=== PATIENT | male | born 1975 | race Caucasian/White ===

== ENCOUNTER → 2020-08-19 07:17 | Outpatient (CLI) | payer OTHER, SELFPAY ==
--- NOTE | 2020-08-19 | DI.RAD.S_ITS ---
PROCEDURE: FL SHOULDER INJECTION MR/CT LT INDICATIONS: ROTATOR CUFF SYNDROME COMPARISON: None. TECHNIQUE: The indications, alternatives, benefits, risks, and complications of the procedure were explained to the patient. Written informed consent was obtained and placed in the chart. The shoulder was examined fluoroscopically and a site for needle placement chosen for entry into the glenohumeral joint from an anterior approach. The skin was prepped and draped in a sterile fashion, and 1% lidocaine infiltrated from skin down to joint capsule. A spinal needle was inserted into the glenohumeral joint, and a small amount of iodinated contrast media injected to confirm intra-articular placement of the needle tip. This was followed by approximately 12 mL dilute solution of a gadolinium containing MR contrast agent. The needle was removed and a dressing was applied. The patient was given postprocedural instructions and sent to the MR suite for MR imaging. FINDINGS: A single fluoroscopic spot image demonstrates intra-articular location of injected iodinated contrast. IMPRESSION: Successful fluoroscopically guided administration of dilute Gadolinium solution into the shoulder joint for MR arthrogram. Dictated by: Roldan Bonilla M.D. on 08/19/2020 at 10:45 Approved by: Roldan Bonilla M.D. on 08/19/2020 at 10:45
--- NOTE | 2020-08-19 | DI.MRI.S_ITS ---
PROCEDURE: MR SHOULDER LT W CON INDICATIONS: ROTATOR CUFF SYNDROME TECHNIQUE: After the administration of 12 mL of dilute intra-articular Gadolinium contrast, oblique coronal T1 and T2 spin echo with fat saturation, oblique sagittal T1 spin echo with and without fat saturation, oblique sagittal T2 fast spin echo with fat saturation, axial T1 spin echo with fat saturation through the shoulder. COMPARISON: None. FINDINGS: Image quality: Mildly motion degraded. Rotator cuff: Supraspinatus tendinopathy with partial thickness articular sided tear, approximately 50% of tendon thickness. There is also low-grade bursal surface fraying. No definite full-thickness tear identified. Infraspinatus tendon grossly intact with mild tendinopathy. Teres minor is intact. Mild subscapularis tendinopathy. No atrophy of the rotator cuff muscles although there is mild fatty infiltration of the supraspinatus and infraspinatus. Bones and bursae: No bone marrow contusions or fractures. Mild acromioclavicular joint degeneration. Mild glenohumeral joint degeneration. Acromion demonstrates conventional anatomy, without an os acromiale. Capsule and soft tissues: Labrum: Mild superior labral fraying, which could be age appropriate. There is a posterior-superior labral tear which is probably chronic. There is minimal adjacent glenoid rim sclerosis and spurring. No definite posterior subluxed appearance of the humeral head relative to the glenoid. Long head of the biceps tendon intact. The rotator interval appears normal, without fibrosis. Coracohumeral ligament intact. IMPRESSION: Chronic appearing posterosuperior labral tear. Minimal adjacent degenerative changes in the glenoid. Supraspinatus tendinopathy with partial thickness articular sided tear and low-grade bursal surface fraying as detailed above. Supraspinatus , subscapularis and infraspinatus tendinopathy Dictated by: Roldan Bonilla M.D. on 08/19/2020 at 9:54 Approved by: Roldan Bonilla M.D. on 08/19/2020 at 10:02
== END ==
PROVIDERS: PCP Student in an Organized Health Care Education/Training Program; Referring Provider Student in an Organized Health Care Education/Training Program; Visit Provider Student in an Organized Health Care Education/Training Program
DX: M75.102 Unspecified rotator cuff tear or rupture of left shoulder, not specified as traumatic (principal); M19.012 Primary osteoarthritis, left shoulder; S43.432A Superior glenoid labrum lesion of left shoulder, initial encounter
CPT/HCPCS: 23350; 73222; 77002

== ENCOUNTER 2022-04-18 08:21 | Emergency (ER) | payer BC, SELFPAY ==
[2022-04-18 08:26] VITALS: PULSE 64; O2SAT 100
[2022-04-18 08:35] VITALS: BP 180/90; PULSE 69; RESP 18; TEMP 36.8; O2SAT 100; BMI 33.9
[2022-04-18 08:41] LABS: Add Manual Diff / Slide Review NO; Basophils Absolute Auto 0 /uL (0-100); Basophils Percent Auto 0.4 % (0-2); Eosinophils Absolute Auto 200 /uL (0-450); Eosinophils Percent Auto 3.3 % (2-4); Hematocrit 43.8 % (41-53); Hemoglobin 15.1 g/dL (13.5-17.5); Lymphocytes Absolute Auto 2300 /uL (1100-4500); Lymphocytes Percent Auto 31.1 % (25-40); Mean Corpuscular HGB Conc 34.4 % (30-36); Mean Corpuscular Hemoglobin 27.9 PG (26-34); Mean Corpuscular Volume 81.1 fL (80-100); Monocytes Absolute Auto 600 /uL (0-900); Monocytes Percent Auto 8.5 % (3-14); Neutrophils Absolute Auto 4200 /uL (1500-7000); Neutrophils Percent Auto 56.7 % (50-75); Platelet Count 267 X10^3/uL (150-400); Red Cell Distribution Width 13.7 % (11.6-14.8); White Blood Cell Count 7.4 X10^3/uL (4.5-11.0)
[2022-04-18] MEDS: SODIUM CHLORIDE 0.9% 1,000 ML 1000 ML IV (08:44)
[2022-04-18] MEDS: KETOROLAC 30 MG/ML VIAL 15 MG IV (08:44)
--- NOTE | 2022-04-18 08:45 | ED_ITS ---
HPI - Abdominal Pain General Chief Complaint: Abdominal Pain Stated Complaint: Right flank pain Time Seen by Provider: 04/18/22 08:27 History of Present Illness HPI narrative: 46-year-old male nonsmoker with history of diabetes presents with his in the chief complaint of severe right flank pain since this morning. He states that it is quite severe and is unable to give it a number, it seems to be worse when he moves and improves with rest. He states it is deep and aching and wraps around his right side into his groin. He denies any fever or chills. He is had no chest pain or shortness of breath. He denies abdominal pain, nausea, vomiting, diarrhea or constipation. He is had no dysuria, frequency or urgency. He states that he is had a few prior episodes that seemed to get better after a few days. He denies any history of kidney stones. He is had no rash and denies any heavy lifting or injury. Related Data Previous Rx's Medication Instructions Recorded hydrocodone 5 mg-acetaminophen 325 0 tab PO Q4HP PRN #30 tabs 05/11/17 mg tablet lorazepam 0.5 mg tablet 0.5 mg PO Q4HP PRN ##30 05/11/17 metoprolol succinate 50 mg 100 mg PO QDAY #30 tabs 05/11/17 tablet,extended release 24 hr nitroglycerin 0.4 mg sublingual 0.4 mg sublingual PRN PRN #20 tabs 05/11/17 tablet (Nitrostat) pantoprazole 40 mg tablet,delayed 40 mg PO QDAY #30 tabs 05/11/17 release amoxicillin 875 mg-potassium 875 mg PO BID 10 days #0 tabs 11/16/17 clavulanate 125 mg tablet (Augmentin) tramadol 50 mg tablet 1 - 2 mg PO Q4HP PRN #15 tabs 11/16/17 hydrocodone 5 mg-acetaminophen 325 1 tab PO Q4-6H PRN pain #20 tabs 04/18/22 mg tablet ketorolac 10 mg tablet 10 mg PO Q6H PRN pain #14 tabs 04/18/22 ondansetron 4 mg disintegrating 4 mg PO TID-QID PRN nausea and 04/18/22 tablet vomiting #10 tabs tamsulosin 0.4 mg capsule (Flomax) 0.4 mg PO DAILY #30 caps 04/18/22 Allergies Allergy/AdvReac Type Severity Reaction Status Date / Time No Known Drug Allergies Allergy Verified 04/18/22 08:56 Review of Systems Review of Systems Narrative: GENERAL: Denies chills, fatigue, malaise, fever, sweats. HEENT: Denies sinus pain, ear pain, sore throat, difficulty swallowing, dizziness. RESPIRATORY: Denies dyspnea, cough, wheezing, hemoptysis, sputum. CARDIOVASCULAR: Denies chest pain, palpitations, orthopnea, edema, GASTROINTESTINAL: Denies nausea, vomiting, abdominal pain, diarrhea, constipation, melena. : See HPI MUSCULOSKELETAL: See HPI SKIN: Denies rash, skin lesions, or other NEUROLOGIC: Denies weakness, headache, numbness, change in speech, confusion, seizures, incoordination. PSYCHIATRIC: No concerning psychosocial issues. 12 point review of systems is negative except for those stated above Patient History Social History Smoking Status: Never smoker Exam Narrative Exam Narrative: GENERAL: [46] year old patient appears stated age. Well-developed patient, in obvious distress, rubbing his right flank HEAD: Atraumatic. Normocephalic. EYES: Pupils equal round and reactive. Extraocular motions intact. No scleral icterus. No injection or drainage. ENT: Nose without bleeding, purulent drainage. Throat without erythema, tonsillar hypertrophy or exudate. Airway patent. NECK: Trachea midline. Non tender CARDIOVASCULAR: Regular rate and rhythm without murmurs, gallops, or rubs. RESPIRATORY: Clear to auscultation. Breath sounds equal bilaterally. No wheezes, rales, or rhonchi. GASTROINTESTINAL: Abdomen soft, non-tender, nondistended. EXTREMITIES: No edema or joint tenderness. BACK: Right CVA tenderness, no obvious swelling, erythema, crepitance or ecchymosis NEURO: AOx3. SKIN: No rash or erythema of visible areas Initial Vital Signs Initial Vital Signs: Vital Signs Temperature 98.2 F 04/18/22 08:35 Pulse Rate 69 04/18/22 08:35 Respiratory Rate 18 04/18/22 08:35 Blood Pressure 180/90 H 04/18/22 08:35 Pulse Oximetry 100 04/18/22 08:35 Oxygen Delivery Method 04/18/22 08:35 Course Orders Ordered: ED Orders 04/18/22 08:30 Complete Blood Count AUTO DIFF Stat Comprehensive Metabolic Panel Stat 04/18/22 08:53 Urine Microscopic Stat 04/18/22 08:55 CT kidney ureter bladder (KUB) Stat Discontinued Medications Hydromorphone HCl (Hydromorphone 1 Mg Inj) 1 mg IV NOW ONE Stop: 04/18/22 08:56 Last Admin: 04/18/22 09:00 Dose: 1 mg Documented By: SEB Sodium Chloride (Normal Saline 0.9%) 1,000 mls @ 1,000 mls/hr IV BOLUS ONE Stop: 04/18/22 09:33 Last Infusion: 04/18/22 09:51 Dose: 0 mls/hr Documented By: Admin: 04/18/22 08:44 Dose: 1,000 mls/hr Documented By: SEB Ketorolac Tromethamine (Ketorolac 30 Mg/Ml Vial) 15 mg IV NOW ONE Stop: 04/18/22 08:35 Last Admin: 04/18/22 08:44 Dose: 15 mg Documented By: SEB Tamsulosin HCl (Tamsulosin 0.4 Mg Capsule) 0.4 mg PO NOW ONE Stop: 04/18/22 09:38 Last Admin: 04/18/22 09:43 Dose: 0.4 mg Documented By: SEB Vital Signs Vital signs: Vital Signs - 8 hr 04/18/22 08:35 Temperature 98.2 F Pulse Rate 69 Respiratory Rate 18 Blood Pressure 180/90 H Pulse Oximetry 100 Oxygen Delivery Method Room Air MDM - Abdominal Pain Lab Data Result diagrams: 04/18/22 08:30 04/18/22 08:30 Labs: Lab Results 04/18/22 04/18/22 04/18/22 Range/Units 08:30 08:30 08:53 WBC 7.4 (4.5-11.0) X10^3/uL RBC 5.40 (4.5-5.9) X10^6/uL Hgb 15.1 (13.5-17.5) g/dL Hct 43.8 (41-53) % MCV 81.1 (80-100) fL MCH 27.9 (26-34) PG MCHC 34.4 (30-36) % RDW 13.7 (11.6-14.8) % Plt Count 267 (150-400) X10^3/uL Neut % (Auto) 56.7 (50-75) % Lymph % (Auto) 31.1 (25-40) % Bay % (Auto) 8.5 (3-14) % Eos % (Auto) 3.3 (2-4) % Baso % (Auto) 0.4 (0-2) % Neut # (Auto) 4200 (7960-5903) /uL Lymph # (Auto) 2300 (9152-4392) /uL Bay # (Auto) 600 (0-900) /uL Eos # (Auto) 200 (0-450) /uL Baso # (Auto) 0 (0-100) /uL Sodium 138 (137-145) mmol/L Potassium 4.1 (3.4-5.1) mmol/L Chloride 102 (98-107) mmol/L Carbon Dioxide 30 (22-32) mmol/L BUN 20 (9-20) mg/dL Creatinine 0.84 (0.66-1.25) mg/dL Estimated GFR > 60 (>60) mL/min BUN/Creatinine Ratio 23.8 H (6-22) Glucose 119 H (70-100) mg/dL Calcium 8.7 (8.4-10.2) mg/dL Total Bilirubin 0.6 (0.2-1.3) mg/dL AST 17 (17-59) IU/L ALT 18 (<50) IU/L Alkaline Phosphatase 103 (38-126) U/L Total Protein 7.6 (6.3-8.2) g/dL Albumin 4.1 (3.5-5.0) g/dL Globulin 3.5 (1.7-4.1) g/dL Albumin/Globulin Ratio 1.2 (1.0-2.8) Urine RBC 5-10/hpf H (0-5/HPF) Urine WBC 0-1/hpf (0-5/HPF) Urine Bacteria Occasional (0-1) (None) Ur Culture Indicated? Cult not indicated Point of care testing: Urine Dip Bedside Urine Glucose Negative Bedside Urine Bilirubin - Negative Bedside Urine Ketone - Negative Urine Specific [place] 1.020 Bedside Urine Occult Blood ++ Bedside Urine pH 6.0 Bedside Urine Protein - Negative Bedside Urine Urobilinogen - Negative Bedside Urine Nitrite - Negative Bedside Urine Leukocytes - Negative Esterase Imaging Data CT scan - abdomen/pelvis: Radiologist's Impression: ? Chart Viewer Diagnostics Subcategory All Activity ??:?? All Time ??:?? All Subcategories Filter Laboratory Imaging Microbiology Pathology Blood Bank Tests Cardiovascular Other Specialty DATE TYPE STATUS REF RANGE/AUTHOR Hx Today 08:55 Abdomen/Pelvis CT Signed Angi Martin 08/19/20 00:00 Shoulder MRI Signed Roldan Bonilla 08/19/20 00:00 Injection for MRI Arthrogram Signed Roldan Bonilla Matthew C ED 46, M?1975 MRN#? [id number] REG ER,?Main ED??R12?? 182.88cm 113.398kg BMI: 33.9kg/m? Abdominal Pain Acc#? [id number] Resus Status Not Ordered No Hx Avail Special Indicators No Data to Display Home Meds Not Confirmed Prescription Monitoring Program Total 30 MME/Day Incomplete MEDICATIONS (INSTRUCTIONS) LAST TAKEN Active ??amoxicillin-pot clavulanate [Augmentin] ??875 [id number] days#0 tabs *Product no longer available ??hydrocodone-acetaminophen ??0 [id number]#30 tabs 0 MME/Day hydrocodone-acetaminophen 1 tabPOQ4-6HPRNpain#20 tabs 30 MME/Day ketorolac 10 prUER4RGJGdgus#14 tabs ??lorazepam ??0.5 [id number]##30 ??metoprolol succinate ??100 mgPOQDAY#30 tabs ??nitroglycerin [Nitrostat] ??0.4 mgsublingualPRNPRN#20 tabs ondansetron 4 mgPOTID-QIDPRNnausea and vomiting#10 tabs ??pantoprazole ??40 mgPOQDAY#30 tabs tamsulosin [Flomax] 0.4 mgPODAILY#30 caps ??tramadol ??1 - 2 klNJG8ITBPI#15 tabs 0 MME/Day Allergies No Known Drug Allergies Problems ? ONSET Kidney stone on right side Cholelithiasis and cholecystitis without obstruction Chest pain Hypertension Leukocytosis Reflux esophagitis Anxiety Cellulitis of face Vital Signs Today 08:35 BP 180/90?H Pulse 69? Resp 18? Temp 98.2 F? O2 Sat 100? Delivery Room Air? Diagnostics Reports Momo Garg??46??M??1975 ? Allergy/Adv: No Known Drug Allergies (More??) Close Abdomen/Pelvis CT (Signed) Angi Martin - 04/18/22 Shoulder MRI (Signed) Roldan Bonilla - 08/19/20 Injection for MRI Arthrogram (Signed) Roldan Bonilla - 08/19/20 Launch?Image [address] [address] [address] Scan Report Signed Patient: Momo Garg MR#: [id number] : 1975 Acct:[id number] Age/Sex: 46 / M Date of Service: 04/18/22 Loc: ED Accession Number: [id number] ?? Procedure: CT kidney ureter bladder (KUB) Ordering Provider: Karan Hernandez D.O. PROCEDURE:? CT KIDNEY URETER BLADDER (KUB) ? INDICATIONS:? R flank pain ? TECHNIQUE:? Axial sections were acquired from the lung bases to the pubic symphysis.? Coronal and sagittal reformats were performed.? For radiation dose reduction, the following was used: ?automated exposure control, adjustment of mA and/or kV according to patient size.? ? COMPARISON:? [facility], CT, PE STUDY (CTA CHEST), 05/11/2017, 9:23. ? FINDINGS:? Image quality:? Excellent.? ? Lung bases:? 5 mm right middle lobe nodule series 3, image 2 as well as 2 mm adjacent nodule on series 3, image 2. These are unchanged compared to 05/11/2017. Heart:? Heart is enlarged. ? URINARY: Right Kidney:? There is mild hydronephrosis.? No renal stones.? Right Ureter:? Mild hydroureter.? There is a punctate calcification approximately 1 cm from the ureterovesicular junction.? ? Left Kidney: ? No stones or hydronephrosis. Left Ureter:? No hydroureter.? ? Bladder:? Normal wall thickness. No stones. ? ? ? ABDOMEN: Liver:? Unremarkable.? ? Gallbladder:? Removed.? ? Biliary ducts:? Unremarkable.? ? Pancreas:? Unremarkable.? ? Spleen:? Unremarkable.? ? Adrenal Glands:? Unremarkable.? ? ? Stomach and Bowel:? Stomach, small bowel loops, and colon are nonobstructive.? Prominent colonic diverticula are present without inflammatory change.? Appendix is normal.? Moderate scattered stool. Peritoneum:? No abnormal intraperitoneal fluid.? No free air.? ? Ventral Wall: ? No hernia.? Abdominal Nodes:? No enlarged retroperitoneal or mesenteric lymph nodes.? Vessels:? Aorta and inferior vena cava are normal in size.? ? PELVIS: Pelvic Organs:? Unremarkable.? ? Pelvic Nodes: Unremarkable. Miscellaneous: No inguinal hernias are seen. ? ? ? Bones:? Unremarkable. ? IMPRESSION:? ? Mild right hydronephrosis and hydroureter with punctate calcification approximately 1 cm proximal to the ureterovesicular junction. ? ? ? Dictated by: Angi Martin M.D. on 04/18/2022 at 9:19 ? ? MDM Narrative Medical decision making narrative: 46-year-old male with classic history and physical exam for kidney stone which is noted on CT with moderate hydro. There is no evidence of kidney injury, infection or sepsis. Pain is well controlled and he is tolerating orals. He has been given extensive return precautions, prescription sent to his pharmacy of choice and questions answered to his apparent satisfaction Discharge Plan Departure Patient Disposition: Home Clinical Impression: Kidney stone on right side Instructions: DI for Kidney Stones Activity Restrictions/Additional Instructions: *You have been diagnosed with [ right sided kidney stone with associated hydronephrosis] *What to do: *Please continue to take your regular medications as directed. [ x] New medication prescriptions sent to your pharmacy: [ ] [ ] New medication written as a paper prescription [ ] No new medications given *Please follow up with Urology (Dr. Catalan), call later today for an appointment. Let them know you were seen in the Emergency Department and that we ask that you be seen in follow up. We will electronically transmit a record of today's note *Return to Emergency Department if you should have any new, worsening or concerning symptoms, such as [fever greater than 101 F, shaking chills, worsening pain, persistent vomiting or other bothersome symptoms] Prescriptions: New hydrocodone-acetaminophen 5-325 mg tablet 1 tab PO Q4-6H PRN (Reason: pain) Qty: 20 0RF ketorolac 10 mg tablet 10 mg PO Q6H PRN (Reason: pain) Qty: 14 0RF tamsulosin [Flomax] 0.4 mg capsule 0.4 mg PO DAILY Qty: 30 0RF ondansetron 4 mg tablet,disintegrating 4 mg PO TID-QID PRN (Reason: nausea and vomiting) Qty: 10 0RF No Action metoprolol succinate 50 MG tablet extended release 24 hr 100 mg PO QDAY Qty: 30 3RF nitroglycerin [Nitrostat] 0.4 MG tablet, sublingual 0.4 mg Sublingual PRN PRNQty: 20 2RF lorazepam 0.5 MG tablet 0.5 mg PO Q4HP PRNQty: 30 0RF hydrocodone-acetaminophen 5 MG/325 MG tablet 0 tab PO Q4HP PRNQty: 30 0RF pantoprazole 40 MG tablet,delayed release (DR/EC) 40 mg PO QDAY Qty: 30 3RF tramadol 50 MG tablet 1 - 2 mg PO Q4HP PRNQty: 15 0RF amoxicillin-pot clavulanate [Augmentin] 875 MG/125 MG tablet 875 mg PO BID 10 Days Qty: 0 0RF Referrals: Fay Ly MD [Primary Care Provider] - Scotty Catalan MD [Physician] -
[2022-04-18 08:52] LABS: Alanine Aminotransferase 18 IU/L (<50); Albumin 4.1 g/dL (3.5-5.0); Albumin Globulin Ratio 1.2 (1.0-2.8); Alkaline Phosphatase 103 U/L (38-126); Aspartate Aminotransferase 17 IU/L (17-59); BUN Creatinine Ratio 23.8 (6-22); Bilirubin Total 0.6 mg/dL (0.2-1.3); Blood Urea Nitrogen 20 mg/dL (9-20); Calcium 8.7 mg/dL (8.4-10.2); Carbon Dioxide 30 mmol/L (22-32); Chloride 102 mmol/L (98-107); Estimated Glomerular Filt Rate > 60 mL/min (>60); Globulin 3.5 g/dL (1.7-4.1); Glucose 119 mg/dL (70-100); HEMOLYSIS < 15 (0-50); Potassium 4.1 mmol/L (3.4-5.1); Sodium 138 mmol/L (137-145); Total Protein 7.6 g/dL (6.3-8.2)
--- NOTE | 2022-04-18 08:55 | DI.CT.S_ITS ---
PROCEDURE: CT KIDNEY URETER BLADDER (KUB) INDICATIONS: R flank pain TECHNIQUE: Axial sections were acquired from the lung bases to the pubic symphysis. Coronal and sagittal reformats were performed. For radiation dose reduction, the following was used: automated exposure control, adjustment of mA and/or kV according to patient size. COMPARISON: [facility], CT, PE STUDY (CTA CHEST), 05/11/2017, 9:23. FINDINGS: Image quality: Excellent. Lung bases: 5 mm right middle lobe nodule series 3, image 2 as well as 2 mm adjacent nodule on series 3, image 2. These are unchanged compared to 05/11/2017. Heart: Heart is enlarged. URINARY: Right Kidney: There is mild hydronephrosis. No renal stones. Right Ureter: Mild hydroureter. There is a punctate calcification approximately 1 cm from the ureterovesicular junction. Left Kidney: No stones or hydronephrosis. Left Ureter: No hydroureter. Bladder: Normal wall thickness. No stones. ABDOMEN: Liver: Unremarkable. Gallbladder: Removed. Biliary ducts: Unremarkable. Pancreas: Unremarkable. Spleen: Unremarkable. Adrenal Glands: Unremarkable. Stomach and Bowel: Stomach, small bowel loops, and colon are nonobstructive. Prominent colonic diverticula are present without inflammatory change. Appendix is normal. Moderate scattered stool. Peritoneum: No abnormal intraperitoneal fluid. No free air. Ventral Wall: No hernia. Abdominal Nodes: No enlarged retroperitoneal or mesenteric lymph nodes. Vessels: Aorta and inferior vena cava are normal in size. PELVIS: Pelvic Organs: Unremarkable. Pelvic Nodes: Unremarkable. Miscellaneous: No inguinal hernias are seen. Bones: Unremarkable. IMPRESSION: Mild right hydronephrosis and hydroureter with punctate calcification approximately 1 cm proximal to the ureterovesicular junction. Dictated by: Angi Martin M.D. on 04/18/2022 at 9:19 Approved by: Angi Martin M.D. on 04/18/2022 at 9:26
[2022-04-18] MEDS: HYDROMORPHONE 1 MG INJ IV (09:00)
[2022-04-18 09:07] LABS: Bacteria Urine Occasional (0-1); Culture Indicated Urine Cult Not Indicated; RBC Urine 5-10/HPF (0-5/HPF); WBC Urine 0-1/HPF (0-5/HPF)
[2022-04-18] MEDS: TAMSULOSIN 0.4 MG CAPSULE PO (09:43)
[2022-04-18 10:50] VITALS: BP 140/83; PULSE 59; O2SAT 96
[2022-04-18 10:54] VITALS: BP 133/71; PULSE 60; RESP 16; O2SAT 96
== END 2022-04-18 10:55 | disposition home or self-care (01) ==
PROVIDERS: Emergency Provider Emergency Medicine; PCP Student in an Organized Health Care Education/Training Program
DX: N20.0 Calculus of kidney (principal)
CPT/HCPCS: 36415; 74176; 80053; 81003; 81015; 85025; 96361; 96374; 96375; 99284; J1170; J1885

== ENCOUNTER → 2022-04-25 09:01 | Outpatient (CLI) | payer BC, SELFPAY ==
--- NOTE | 2022-04-25 09:02 | DI.RAD.S_ITS ---
PROCEDURE: XR KUB INDICATIONS: Tiny right ureteral stone TECHNIQUE: One view of the abdomen acquired. COMPARISON: [facility], CT, CT KIDNEY URETER BLADDER (KUB), 04/18/2022, 9:01. FINDINGS: Surgical changes and devices: Status post cholecystectomy. Bowel: Increased stool in the large bowel consistent with constipation. Soft tissues: No suspicious abdominal calcifications. Visualized solid organ contours appear normal in size. Bones: No suspicious bony lesions. IMPRESSION: 1. No nephroureterolithiasis identified. 2. Constipation. Dictated by: Darwin Mckinley M.D. on 04/25/2022 at 10:06 Approved by: Darwin Mckinley M.D. on 04/25/2022 at 10:19
== END ==
PROVIDERS: PCP Student in an Organized Health Care Education/Training Program; Referring Provider Urology; Visit Provider Urology
DX: N20.1 Calculus of ureter (principal); K59.00 Constipation, unspecified
CPT/HCPCS: 74018

== ENCOUNTER → 2022-04-29 09:27 | Outpatient (CLI) | payer BC, SELFPAY ==
--- NOTE | 2022-04-29 09:28 | DI.CT.S_ITS ---
PROCEDURE: CT ABDOMEN PELVIS WO CON INDICATIONS: Kidney stone/hydronephrosis TECHNIQUE: Axial sections were acquired from the lung bases to the pubic symphysis. Coronal and sagittal reformats were performed. For radiation dose reduction, the following was used: automated exposure control, adjustment of mA and/or kV according to patient size. COMPARISON: None. FINDINGS: Image quality: Excellent. Lung bases: Unremarkable. Heart: No significant findings. There is a small pericardial effusion. URINARY: Right Kidney: No stones or hydronephrosis. Right Ureter: No hydroureter. Left Kidney: No stones or hydronephrosis. An apparent water density cyst can be seen involving the left mid kidney that measures 1.8 cm. Left Ureter: No hydroureter. Bladder: Normal wall thickness. No stones. ABDOMEN: Liver: Unremarkable. Gallbladder: Removed. Biliary ducts: Unremarkable. Pancreas: Unremarkable. Spleen: Unremarkable. Adrenal Glands: Unremarkable. Stomach and Bowel: Moderate wall thickening can be seen involving the proximal sigmoid colon, with surrounding inflammatory change. Diverticula formation can be seen within this region. The colon is otherwise unremarkable. No dilated loops of small bowel can be seen. A normal appendix is incidentally noted. Peritoneum: Peritoneal abscess is seen. No abnormal intraperitoneal fluid. No free air. Ventral Wall: No hernia. Abdominal Nodes: No enlarged retroperitoneal or mesenteric lymph nodes. Vessels: Aorta and inferior vena cava are normal in size. PELVIS: Pelvic Organs: Unremarkable. Pelvic Nodes: Unremarkable. Miscellaneous: No inguinal hernias are seen. Bones: Unremarkable. IMPRESSION: Negative for kidney stones or hydronephrosis. The previously seen right-sided hydronephrosis has resolved. Mild sigmoid diverticulitis, without findings of perforation or abscess. - When clinically appropriate (following adequate treatment of the patient's current clinical episode) a colonoscopy is recommended for further evaluation for a potential underlying mass (if not already recently done). Incidental note is made of: Small pericardial effusion Cholecystectomy Simple left renal cyst Normal appendix Note: Dr. Verdugo was not available to discuss this case at the time of this dictation. Findings and recommendations relayed to Dr. Verdugo via office staff, [place], at 9:47 a.m. [place] time on April 29, 2022. Dr. Verdugo will call back if there are any questions. Dictated by: Kenny Hunt M.D. on 04/29/2022 at 9:42 Approved by: Kenny Hunt M.D. on 04/29/2022 at 9:50
[2022-04-29 11:12] LABS: Calcium 8.7 mg/dL (8.4-10.2); Uric Acid 4.4 mg/dL (3.5-8.5)
[2022-04-30 05:36] LABS: Parathyroid Hormone Int 26 pg/mL (15-65)
== END ==
LOC: CT 09:28
PROVIDERS: PCP Student in an Organized Health Care Education/Training Program; Referring Provider Urology; Visit Provider Urology
DX: N20.0 Calculus of kidney (principal); N13.30 Unspecified hydronephrosis; K57.32 Diverticulitis of large intestine without perforation or abscess without bleeding; I31.3 Pericardial effusion (noninflammatory); N28.1 Cyst of kidney, acquired
CPT/HCPCS: 36415; 74176; 82310; 83970; 84550

== ENCOUNTER → 2022-05-19 09:51 | Outpatient (CLI) | payer BC, SELFPAY ==
--- NOTE | 2022-05-19 | DI.CT.S_ITS ---
PROCEDURE: CT ABDOMEN PELVIS W CON INDICATIONS: Diverticulitis of intestine, part unspecified, without perfo TECHNIQUE: After the administration of intravenous contrast, axial sections acquired from the lung bases to the pubic symphysis. Coronal and sagittal reformats were performed. For radiation dose reduction, the following was used: automated exposure control, adjustment of mA and/or kV according to patient size. COMPARISON: [facility], CT, CT ABDOMEN PELVIS WO [facility], 04/29/2022, 9:49. FINDINGS: Lower thorax: The lung bases are clear. Heart size normal. No hiatal hernia. Liver: Normal in size and attenuation. No contour deformity present. Biliary system: Cholecystectomy. No intra or extrahepatic bile duct dilation. Pancreas: Unremarkable without mass or inflammation evident. Spleen: Normal in size and density. Adrenals: Normal morphology and density. Reproductive system: Unremarkable as visualized. Urinary system: Normal renal size and attenuation. Left renal cyst again noted. No renal calculi, hydronephrosis, or solid mass present. Urinary bladder unremarkable. Gastrointestinal system: There is mild improved lung wall thickening and adjacent inflammation in the mid sigmoid. No evidence of obstruction. Moderate fecal debris throughout the colon. Multiple diverticula arise from the sigmoid colon. Appendix: Normal appendix identified. No evidence of appendicitis. Peritoneal spaces: No mesenteric or retroperitoneal adenopathy. No free air. No free fluid. Vasculature: The IVC, aorta and iliac vasculature are unremarkable. Abdominal wall: Abdominal wall intact without evidence of ventral or inguinal hernias. Musculoskeletal: Normal bone mineralization. No acute fractures. IMPRESSION: 1. Persistent but improved mid sigmoid wall thickening with adjacent edema may reflect residual mild diverticulitis. Either follow up to complete resolution or direct visualization advised to exclude underlying mass lesion. 2. Stable chronic findings as above Approved by: Burke Tierney M.D. on 05/19/2022 at 13:43
== END ==
PROVIDERS: PCP Family Medicine; Referring Provider Family Medicine; Visit Provider Family Medicine
DX: K57.92 Diverticulitis of intestine, part unspecified, without perforation or abscess without bleeding (principal)
CPT/HCPCS: 74177; Q9967

== ENCOUNTER → 2022-06-23 09:07 | Outpatient (CLI) | payer BC, SELFPAY ==
[2022-06-23 10:39] LABS: Add Manual Diff / Slide Review NO; Basophils Absolute Auto 0 /uL (0-100); Basophils Percent Auto 0.3 % (0-2); Eosinophils Absolute Auto 200 /uL (0-450); Eosinophils Percent Auto 2.8 % (2-4); Hematocrit 43.1 % (41-53); Hemoglobin 14.8 g/dL (13.5-17.5); Lymphocytes Absolute Auto 1800 /uL (1100-4500); Lymphocytes Percent Auto 27.8 % (25-40); Mean Corpuscular HGB Conc 34.4 % (30-36); Mean Corpuscular Volume 81.3 fL (80-100); Monocytes Absolute Auto 500 /uL (0-900); Monocytes Percent Auto 7.2 % (3-14); Neutrophils Absolute Auto 4000 /uL (1500-7000); Neutrophils Percent Auto 61.9 % (50-75); Platelet Count 242 X10^3/uL (150-400); Red Blood Cell Count 5.31 X10^6/uL (4.5-5.9); Red Cell Distribution Width 13.2 % (11.6-14.8); White Blood Cell Count 6.4 X10^3/uL (4.5-11.0)
[2022-06-23 11:19] LABS: Alanine Aminotransferase 27 IU/L (<50); Albumin 4.1 g/dL (3.5-5.0); Albumin Globulin Ratio 1.4 (1.0-2.8); Alkaline Phosphatase 105 U/L (38-126); Aspartate Aminotransferase 18 IU/L (17-59); Bilirubin Total 0.9 mg/dL (0.2-1.3); Blood Urea Nitrogen 18 mg/dL (9-20); Calcium 8.9 mg/dL (8.4-10.2); Carbon Dioxide 26 mmol/L (22-32); Chloride 97 mmol/L (98-107); Estimated Glomerular Filt Rate > 60 mL/min (>60); Glucose 260 mg/dL (70-100); HEMOLYSIS < 15 (0-50); Potassium 4.4 mmol/L (3.4-5.1); Sodium 136 mmol/L (137-145); Total Protein 7.1 g/dL (6.3-8.2)
== END ==
PROVIDERS: PCP Family Medicine; Referring Provider Surgery; Visit Provider Surgery
DX: K57.92 Diverticulitis of intestine, part unspecified, without perforation or abscess without bleeding (principal)
CPT/HCPCS: 36415; 80053; 85025

== ENCOUNTER → 2022-06-28 13:17 | Outpatient (CLI) | payer BC, SELFPAY ==
--- NOTE | 2022-06-28 13:18 | DI.CT.S_ITS ---
PROCEDURE: CT ABDOMEN PELVIS W CON INDICATIONS: Diverticulitis TECHNIQUE: After the administration of oral and IV contrast, axial sections were acquired from the lung bases to the pubic symphysis. Coronal and sagittal reformats were performed. For radiation dose reduction, the following was used: automated exposure control, adjustment of mA and/or kV according to patient size. COMPARISON: [facility], CT, CT ABDOMEN PELVIS WO CON, 04/29/2022, 9:49. [facility], CT, CT ABDOMEN PELVIS W CON, 05/19/2022, 11:18. FINDINGS: Image quality: Excellent. Lung bases: Left lower lobe pulmonary nodule measuring 0.5 cm (3/11), unchanged since 2017. Heart: No significant findings. ABDOMEN: Liver: No focal lesion. Gallbladder: Absent. Biliary ducts: Unremarkable. Pancreas: Unremarkable. Spleen: No splenomegaly. Small cyst or hemangioma, unchanged. Adrenal Glands: Unremarkable. Kidneys and Ureters: No hydronephrosis. Small parapelvic cyst in the left kidney. Stomach and Bowel: Stomach, small bowel loops, and colon are unremarkable. Normal appendix. Probable clip at the cecum. Sigmoid colon diverticulosis. No acute diverticulitis identified. There is an area of focal thickening with possible narrowing at the sigmoid colon, (2/70). There are small lymph nodes adjacent to this area in the left lower quadrant, (2/71). Peritoneum: No abnormal intraperitoneal fluid. No free air. Ventral Wall: No hernia. Abdominal Nodes: No retroperitoneal or mesenteric adenopathy by size criteria. Vessels: Aorta and inferior vena cava are normal in size. Moderate plaque. PELVIS: Pelvic Organs: Unremarkable. Bladder: Unremarkable. Pelvic Nodes: No enlarged lymph nodes. Miscellaneous: No inguinal hernias are seen. Bones: No suspicious lesion. IMPRESSION: 1. No acute diverticulitis identified. No free fluid. 2. Focal area of thickening at the sigmoid colon with possible narrowing. Small adjacent lymph nodes. These findings are unchanged in the short-term interval. Colon cancer could have this appearance. -Recommend colonoscopy if not recently performed. Dictated by: Ameya Wolfe M.D. on 06/28/2022 at 16:23 Approved by: Ameya Wolfe M.D. on 06/28/2022 at 16:36
== END ==
PROVIDERS: PCP Family Medicine; Referring Provider Surgery; Visit Provider Surgery
DX: K57.92 Diverticulitis of intestine, part unspecified, without perforation or abscess without bleeding (principal); K57.30 Diverticulosis of large intestine without perforation or abscess without bleeding
CPT/HCPCS: 74177; Q9967

== ENCOUNTER → 2022-07-06 09:16 | Outpatient (CLI) | payer BC, SELFPAY ==
[2022-07-06 12:05] LABS: COVID19 -Nasal RAPID Negative (Negative)
== END ==
PROVIDERS: PCP Family Medicine; Visit Provider Surgery
DX: Z20.822 Contact with and (suspected) exposure to COVID-19 (principal); Z01.812 Encounter for preprocedural laboratory examination
CPT/HCPCS: 87635; C9803

== ENCOUNTER 2022-07-07 14:00 | Day surgery (SDC) | payer BC, SELFPAY ==
[2022-07-07 15:02] VITALS: BP 148/96; PULSE 76; RESP 16; TEMP 36.2; O2SAT 96; BMI 32.5
[2022-07-07] MEDS: LACTATED RINGERS 1,000 ML 42 ML IV (15:16)
--- NOTE | 2022-07-07 15:20 | PM.PREOP ---
Pre-operative Note COVID-19 COVID-19 status: Negative Result date/Date tested (Pos, Neg/Pending): 07/06/22 Interval Note History & Physical reviewed/Exam performed by Physician: Yes Changes to H&P: Yes H&P completed within 30 days and has changed as indicated here:: Recent CT showed no evidence of diverticulitis but thickening in the sigmoid colon ASA Class (for procedural sedation): II
[2022-07-07 15:56] VITALS: BP 124/73; PULSE 71; RESP 13; TEMP 36.6; O2SAT 93
--- NOTE | 2022-07-07 15:59 | P.OP_ITS ---
Operative Date/Time/Diagnoses Date of procedure: 07/07/22 Time of procedure: 15:59 Pre-op diagnosis: Diverticulosis Post-op diagnosis: same Procedure & Clinicians Procedure: Colonoscopy Same procedure as scheduled: Yes Surgeon: Darien Agrawal Operative Notes Procedure in detail: Surgeon: Darien Agrawal MD Anesthesia: Dr. Dial Procedure: The patient was brought to the endoscopy suite, placed in left lateral decubitus position. The patient was connected to monitoring devices. A time-out was performed. Sedation was administered. Once the patient was adequately sedated, a digital rectal exam was performed and was normal. The scope was then inserted and advanced to the cecum where the appendiceal orifice was identified and photographed. The prep was suboptimal but we were able to see most of the colonic mucosa after copious irrigation and suctioning. The scope was then slowly withdrawn over greater than 6 minutes. The mucosa was thoroughly inspected. No polyps were seen. There was rather extensive diverticulosis in the sigmoid colon. There were no obvious masses or s trictures. The scope was retroflexed in the rectum. No abnormality was noted. The scope was straightened and removed. The patient was awakened and brought to recovery. Scope withdrawal time: 14 Sedation time: 25 EBL: 0 Findings: Sigmoid colon diverticulosis Post-operative Condition: stable Disposition: PACU
[2022-07-07 16:01] VITALS: BP 116/72; PULSE 76; RESP 17; TEMP 36.6; O2SAT 93
[2022-07-07 16:05] VITALS: BP 134/79; PULSE 74; RESP 16; TEMP 36.6; O2SAT 95
[2022-07-07 16:12] VITALS: BP 144/96; PULSE 75; RESP 14; TEMP 36.6; O2SAT 99
== END 2022-07-07 16:23 | disposition home or self-care (01) ==
PROVIDERS: PCP Family Medicine; Referring Provider Surgery; Visit Provider Surgery
PROC: 0DJD8ZZ Inspection of Lower Intestinal Tract, Via Natural or Artificial Opening Endoscopic (ICD-10-PCS; CPT 45378; principal; 2022-07-07 15:00)
DX: K57.30 Diverticulosis of large intestine without perforation or abscess without bleeding (principal); Z79.4 Long term (current) use of insulin; Z79.84 Long term (current) use of oral hypoglycemic drugs
CPT/HCPCS: 45378; J2704; J3010

== ENCOUNTER 2022-08-30 06:25 | Inpatient (IN) | payer BC, SELFPAY ==
[2022-08-25 08:21] VITALS: BMI 32.5
[2022-08-30] VITALS (20 sets, daily range): BP systolic 119–169; BP diastolic 75–92; PULSE 83–119; RESP 10–23; TEMP 36.2–36.9; O2SAT 90–97; BMI 33.0
--- NOTE | 2022-08-30 | PATH_ITS ---
[facility] Accession Number: [id number] No. of containers..01 Tissue . 01 Material submitted: . colon - SIGMOID COLON . 01 Clinical history: . COLECTOMY . 01 Diagnosis: Sigmoid Colon, Partial Colectomy (Length 18.4 cm): Segment of colorectum (18.4 cm in length) with diverticulosis. Four benign paracolorectal lymph nodes (0/4). Tissue resection margins demonstrate no significant histomorphologic abnormality. Negative for dysplasia or malignancy. [facility] 09/02/2022 1352 Local . 01 Electronically signed: . Arabella Sher MD, Pathologist NPI- [id number] . 01 Gross description: . The specimen is received in formalin labeled with the patient's name, , and sigmoid colon, and consists of an unoriented length of colon measuring 18.4 cm in length and ranging from 1.9 to 3.8 cm in diameter. The serosa is guaman, relatively smooth and apparently intact with a large amount of attached adipose extending out to 5.3 cm. One staple line is inked blue while the opposite staple line is inked black, and the mesenteric margin is inked green. Opening the specimen reveals the lumen to have an approximate circumference of 3.0 cm with multiple diverticula identified measuring up to 2.6 cm in maximum depth. No perforations are grossly identified upon sectioning. The mucosa is slightly congested and edematous with no polyps or lesions identified. The izquierdo range from 0.3 to 0.5 cm thick. Palpation reveals four guaman lymph node candidates ranging from 0.5 to 0.8 cm in greatest dimension. Benzene Washer sections are submitted as follows: A1: Blue margin en face. A2: Black margin en face. A3: Benzene Washer green margin en face. A4-A5: Benzene Washer diverticula. A6: Benzene Washer normal. A7: Two intact lymph node candidates. A8: Two intact lymph node candidates. ([id number]) /ISI 08/31/2022 1042 Local . 01 Pathologist provided ICD-10: K57.92 . 01 CPT . 005156 Specimen Comment: A courtesy copy of this report has been sent to [phone] Performed at: 01 [facility] [address] [place] [address], [place], [place] [id number] MD Reynold Pressley MD Phone: [phone]
[2022-08-30] MEDS: LACTATED RINGERS 1,000 ML 42 ML IV ×3 (07:11→10:45)
[2022-08-30 07:36] LABS: COVID19 -Nasal RAPID Negative (Negative)
[2022-08-30] MEDS: INSULIN REGULAR 100 UNIT/ML 3 ML VIAL SUBCUT ×2 (07:46→12:40)
--- NOTE | 2022-08-30 07:49 | PM.HP.1 ---
History of Present Illness History of Present Illness Date Patient Seen: 08/30/22 Time Patient Seen: 07:49 Chief complaint: Colectomy Narrative: Momo is here for his lap assisted sigmoid colectomy for chronic diverticulitis. No changes in his symptoms. See office note from June for details. Patient History Medical History (Updated 08/25/22 @ 09:25 by Izzy Jeff RN) COVID-19 virus infection Diabetes HLD (hyperlipidemia) Kidney stones Surgical History (Updated 08/25/22 @ 09:15 by Izzy Jeff RN) History of cholecystectomy History of circumcision Hx of arthroscopy of right knee Hx of colonoscopy (07/07/22) Family & Social History Family History Father Diabetes mellitus Social History: household members significant other,other Prior Living Arrangements House Safety & Behavioral: Feels Safe in Current Yes Environment Been Physically Hurt or No Threatened By a Person Suicidal Ideation Description None Suicide Plan Description No Plan Tobacco & Substance use: Tobacco type smokeless tobacco Smoking Status Current some day smoker alcohol intake current alcohol intake frequency holiday/special occasion Substance Use Type does not use Meds Home Medications and Allergies Home Medications Medication Instructions Recorded Confirmed Type insulin glargine 100 unit/mL (3 28 unit SUBCUT BEDTIME 06/01/22 08/30/22 History mL) subcutaneous pen (Basaglar KwikPen U-100 Insulin) semaglutide 0.25 mg or 0.5 mg (2 0.5 mg SUBCUT QWEEK 06/01/22 08/30/22 History mg/1.5 mL) subcutaneous pen injector (Ozempic) sertraline 25 mg tablet (Zoloft) 50 mg PO BEDTIME 06/01/22 08/30/22 History metronidazole 500 mg tablet 500 mg PO TID #3 tabs 07/26/22 08/30/22 Rx neomycin 500 mg tablet 1 g PO TID 3 doses #6 tabs 07/26/22 08/30/22 Rx atorvastatin 40 mg tablet 40 mg PO BEDTIME 08/25/22 08/30/22 History metformin 1,000 mg tablet 1,000 mg PO BID 08/25/22 08/30/22 History metoprolol succinate 50 mg 100 mg PO BEDTIME 08/25/22 08/30/22 History tablet,extended release 24 hr naproxen sodium 220 mg capsule 440 mg PO BEDTIME 08/25/22 08/30/22 History (Aleve) pantoprazole 20 mg tablet,delayed 20 mg PO BEDTIME 08/25/22 08/30/22 History release Allergies Allergy/AdvReac Type Severity Reaction Status Date / Time tramadol Allergy Severe ITCHING Verified 08/30/22 06:52 Exam Vital Signs (past 8 hours): - 08/30/22 07:01 Temperature 97.2 F L Pulse Rate 93 H Respiratory Rate 16 Blood Pressure 141/90 H Pulse Oximetry 97 Oxygen Delivery Method Room Air Oxygen Delivery Method Room Air Const General: No acute distress Resp Effort & Inspection: normal respiratory effort GI Palpation: soft Objective Labs Labs: Laboratory Results - last 24 hr 08/30/22 06:34 SARS-CoV-2 (PCR) Negative Assessment & Plan Assessment and plan (1) Diverticulitis: Status: Acute Plan 47 year old man with chronic smoldering diverticulitis here for laparoscopic sigmoid colectomy. We reviewed risks and benefits and he would like to proceed. Time Spent With Patient Critical Care time: I spent a total of [] minutes of critical care time on this patient's care today; this time is exclusive of procedural time.
[2022-08-30] MEDS: AMPICILLIN/SULBACTAM 3 GM 3 GM in SODIUM CHLORIDE 0.9% 100 ML IV (08:01)
[2022-08-30] MEDS: BUPIVACAINE LIPOSOME 266 MG/20 ML VIAL INJ (09:03)
[2022-08-30] MEDS: BUPIVACAINE 0.5% W/ EPI (PF) 30 ML VIAL INJ (09:03)
--- NOTE | 2022-08-30 12:28 | P.OP_ITS ---
Operative Date/Time/Diagnoses Date of procedure: 08/30/22 Time of procedure: 12:28 Pre-op diagnosis: Diverticulitis Post-op diagnosis: same Procedure & Clinicians Procedure: Laparoscopic-assisted sigmoid colectomy with splenic flexure mobilization Same procedure as scheduled: Yes Surgeon: Darien Agrawal Protective Signal Superintendent: Magdi Osborn Operative Notes Procedure in detail: The patient was given Unasyn. The patient was brought to the operating room, placed on the table in the supine position and general endotracheal anesthesia was induced. Pinto catheter was inserted and the legs were placed in stirrups. The abdomen was prepped and draped in the usual fashion and a time-out was performed. We made a 1 cm infraumbilical incision and a Jurado port was placed. The abdomen was insufflated in the usual manner. The camera was inserted no evidence of an injury was seen. Next we placed 5 mm ports in the right lower quadrant, right upper quadrant left mid abdomen and subxiphoid position. We inspected the abdomen and found the thickened distal sigmoid colon. We then started to reflect the sigmoid colon along the white line of Toldt. The ureter was visualized and protected. We then continued the dissection to the splenic flexure and performed a complete takedown of the splenic flexure including the distal transverse colon. We continued the dissection down into the pelvis. Once we had adequate mobilization we created a low midline incision. The sigmoid colon was resected using 2 firings of the contour stapler. The mesentery was divided using the LigaSure. The vascular pedicle was doubly tied using 0 silk ties. The specimen demonstrated thickening and induration of the distal sigmoid consistent with the diagnosis. We then created a colorectal anastomosis using the 29 mm EEA stapler. The donuts were intact and the leak test was negative for leak. Finally, Exparel was injected into the pre and post fascial planes. The fascia was then closed using a running 0 PDS suture supported by multiple interrupted 0 Vicryl internal retention sutures. The patient was awakened and brought to recovery room. Dr. Osborn provided assistance with exposure and creation of the anastomosis. EBL: 30 mL Specimen: Sigmoid colon Post-operative Condition: stable Disposition: PACU
[2022-08-30] MEDS: HYDROMORPHONE 2 MG INJ IV ×4 (12:36→12:58)
[2022-08-30] MEDS: ONDANSETRON 4 MG/2 ML INJ IV (12:37)
[2022-08-30] MEDS: LORazepam 2 MG/ML INJ 0.25 MG IV (12:58)
[2022-08-30] MEDS: fentaNYL 100 MCG/2 ML INJ IV (13:07)
[2022-08-30] MEDS: SODIUM CHLORIDE 0.9% 1,000 ML 75 ML IV (14:21)
[2022-08-30] MEDS: HYDROCODONE/ACET 5/325 TABLET 1 TAB PO (15:56)
[2022-08-30] MEDS: HYDROMORPHONE 1 MG INJ IV ×3 (17:51→23:39)
--- NOTE | 2022-08-30 18:35 | PC.NURSE ---
Pt arrived via PACU, drowsy but arousable and aware of surroundings. Pain management as ordered. Surgical site intact. Multiple family here to support Pt. VSS.
[2022-08-30] MEDS: ATORVASTATIN 20 MG TABLET 40 MG PO (20:49)
[2022-08-30] MEDS: IBUPROFEN 600 MG TABLET PO (20:50)
[2022-08-30] MEDS: METOPROLOL ER 50 MG TABLET 100 MG PO (20:50)
[2022-08-30] MEDS: SERTRALINE 50 MG TABLET PO (20:51)
[2022-08-30] MEDS: INSULIN LISPRO 100 UNIT/ML 3ML VIAL SUBCUT (20:51)
[2022-08-31] VITALS (9 sets, daily range): BP systolic 121–161; BP diastolic 75–94; PULSE 76–85; RESP 16–22; TEMP 36.3–36.9; O2SAT 93–96
[2022-08-31] MEDS: HYDROMORPHONE 1 MG INJ IV ×7 (02:37→23:10)
[2022-08-31] MEDS: SODIUM CHLORIDE 0.9% 1,000 ML 75 ML IV ×2 (02:37→15:32)
[2022-08-31 06:12] LABS: Add Manual Diff / Slide Review NO; Basophils Absolute Auto 0 /uL (0-100); Basophils Percent Auto 0.1 % (0-2); Eosinophils Absolute Auto 100 /uL (0-450); Eosinophils Percent Auto 0.8 % (2-4); Hematocrit 39.6 % (41-53); Hemoglobin 13.3 g/dL (13.5-17.5); Lymphocytes Absolute Auto 1400 /uL (1100-4500); Lymphocytes Percent Auto 16.9 % (25-40); Mean Corpuscular HGB Conc 33.5 % (30-36); Mean Corpuscular Hemoglobin 27.7 PG (26-34); Mean Corpuscular Volume 82.5 fL (80-100); Monocytes Absolute Auto 800 /uL (0-900); Monocytes Percent Auto 10.3 % (3-14); Neutrophils Absolute Auto 5800 /uL (1500-7000); Neutrophils Percent Auto 71.9 % (50-75); Platelet Count 240 X10^3/uL (150-400); Red Cell Distribution Width 13.4 % (11.6-14.8); White Blood Cell Count 8.1 X10^3/uL (4.5-11.0)
[2022-08-31 06:19] LABS: BUN Creatinine Ratio 15.5 (6-22); Blood Urea Nitrogen 9 mg/dL (9-20); Calcium 7.8 mg/dL (8.4-10.2); Carbon Dioxide 26 mmol/L (22-32); Chloride 101 mmol/L (98-107); Estimated Glomerular Filt Rate > 60 mL/min (>60); Glucose 214 mg/dL (70-100); HEMOLYSIS < 15 (0-50); Potassium 3.6 mmol/L (3.4-5.1); Sodium 134 mmol/L (137-145)
[2022-08-31] MEDS: INSULIN LISPRO 100 UNIT/ML 3ML VIAL SUBCUT ×3 (08:43→17:10)
--- NOTE | 2022-08-31 10:58 | PM.PN.1 ---
Subjective Subjective Date Patient Seen: 08/31/22 Time Patient Seen: 10:59 Interval history: Complains of incisional pain but so far he is able to manage with IV and oral pain medications. Exam Vital Signs (past 8 hours): - 08/31/22 03:55 08/31/22 08:43 Temperature 97.5 F L 97.9 F Pulse Rate 81 79 Respiratory Rate 20 18 Blood Pressure 161/94 H 124/86 Pulse Oximetry 96 93 Oxygen Flow Rate 2 0 Oxygen Delivery Method Nasal Cannula Oxygen Flow Rate 0 Const General: No acute distress Resp Effort & Inspection: normal respiratory effort GI Palpation: soft Objective Labs Result Diagrams: 08/31/22 05:52 08/31/22 05:52 Labs: Laboratory Results - last 24 hr 08/31/22 08/31/22 05:52 05:52 WBC 8.1 RBC 4.80 Hgb 13.3 L Hct 39.6 L MCV 82.5 MCH 27.7 MCHC 33.5 RDW 13.4 Plt Count 240 Neut % (Auto) 71.9 Lymph % (Auto) 16.9 L Shawnee % (Auto) 10.3 Eos % (Auto) 0.8 L Baso % (Auto) 0.1 Neut # (Auto) 5800 Lymph # (Auto) 1400 Shawnee # (Auto) 800 Eos # (Auto) 100 Baso # (Auto) 0 Sodium 134 L Potassium 3.6 Chloride 101 Carbon Dioxide 26 BUN 9 Creatinine 0.58 L Estimated GFR > 60 BUN/Creatinine Ratio 15.5 Glucose 214 H Calcium 7.8 L PFSH Medical History (Updated 08/31/22 @ 10:59 by Darien Agrawal MD) COVID-19 virus infection Diabetes HLD (hyperlipidemia) Kidney stones Surgical History (Updated 08/25/22 @ 09:15 by Izzy Jeff RN) History of cholecystectomy History of circumcision Hx of arthroscopy of right knee Hx of colonoscopy (07/07/22) Family History Father Diabetes mellitus Social History marital status: household members: significant other and other Smoking Status: Current some day smoker alcohol intake: current Assessment & Plan Assessment and plan (1) Postoperative examination: Status: Acute Plan Doing well postop day 1 following laparoscopic-assisted sigmoid colon resection for diverticulitis DC Pinto Mobilize Lovenox manny Time Spent With Patient Critical Care time: I spent a total of [] minutes of critical care time on this patient's care today; this time is exclusive of procedural time.
--- NOTE | 2022-08-31 12:25 | CM.DANOTE ---
DCP: Case received, EMR reviewed and met with patient. Introduced self and role. Was able to obtain information from patient regarding his baseline activity level prior to hospitalization. DCP assessment completed with information currently available. Patient is a 47 year old male who admitted yesterday morning to the care of the surgical team. PCP: Dr. Mata. Payer: confirmed: Out of State [facility]. Patient came to the hospital for a surgical procedure. Patient had lap assisted sigmoid colectomy for chronic diverticulitis. Patient had his surgery yesterday, and is being managed with IV and oral pain meds. Met with patient in his room. He is alert and oriented, laying in bed. He is independent at his baseline, and resides here in [place] with his partner, Olga Diaz. He is employed at [employer]. P: DCP to continue to follow. Patient should be able to discharge home when deemed medically stable. Anna Ramsey RN/Furnace Mason Discharge Planning/Care Management Advanced directive, confirm from FAMILY Start: 08/30/22 14:17 Freq: Q24H Status: Active Protocol: Document 08/30/22 14:17 EM (Rec: 08/30/22 14:17 EM [id number]) Advance Directive, confirm on record Time 14:17 Person contacted olga Quesada received No CM Discharge Assessment Start: 08/31/22 12:24 Freq: Status: Active Protocol: Document 08/31/22 12:24 VM (Rec: 08/31/22 12:25 VM [id number]) Discharge Planning Assessment Assigned Damage Assessor Anna Ramsey RN/Furnace Mason Advance Directives? No Advance Directives on File No History Provided By Patient Prior Living Arrangements House Household Members significant other,other Type of transporation used prior to Drives own vehicle admit Independent with ADL's Yes Is patient alert and oriented? Yes Caregiver for Another No Discharge Plan Home Transportation Arrangement Partner Referrals Initiated None needed Whiteboard Updated in Patient Room with Yes name and ext. # of Damage Assessor Review Status In Process Next Review Type Continued Stay Review Pre-Anesthesia Assessment Start: 08/25/22 08:21 Freq: Status: Complete Protocol: Document 08/25/22 08:21 CAB (Rec: 08/25/22 09:56 CAB [id number]) Pre-Anesthesia Assessment Patient Information Reviewed Via Phone Assessment Assessment Completed With Patient Comment COVID-RAPID on admit Primary Care Provider Marques Mata Seen Specialist in Last 12 Months Yes Specialist Seen Emergency,General surgeon, Urologist Primary Language Hungarian Glass Etcher Helper Required No Height 6 ft Weight 240 lb Body Mass Index (BMI) 32.5 Hearing Ability Normal Visual Assist Glasses Dentition Type Teeth, Natural Present,Teeth, Broken Barriers to Learning None Hx Anesthesia Reactions No Hx Family Anesthesia Reaction No Hx Malignant Hyperthermia No Hx Blood Transfusions No Hx Blood Transfusion Reaction No Anesthesia Review Requested No Package Pick Up No alcohol intake former Smoking Status Never smoker Substance Use Type does not use Pain Present Pain Reported Musculoskeletal Symptoms Back Pain History of Falling (Recent or History of No ) Patient is completely paralyzed or No completely immobile Mental Status Oriented to own ability Is patient on oxygen? No Does patient have ANNE/SOB No Hx Sleep Apnea No CPAP/BIPAP use not prescribed Currently Taking a Beta Eli Yes: Metoprolol Can You Climb a Flight of Stairs Without Yes SOB Hx Chest Pain No Hx SOB No Hx Syncope or Dizziness No Anti-Coagulant Therapy No Has a Document Analyst No Cardiac Testing No Hx Pacemaker/ICD No Pacemaker Rep Required? No Cardiac Clearance Received Not Applicable Diet Type At Home Regular Dysphagia No Gastrointestinal Symptoms Abdominal Pain Bladder Pattern Frequency Urinary Catheter Present No Hx Urinary Self Catheterization No Diabetes Yes: Pt checks blood sugars 3- 4x/week Presence of External or Internal Medical No Devices Received a COVID vaccine? No Marital Status Lives With significant other,other Current Living Arrangements House Number of Floors (Floors) Two Floors Support System Sibling(s),Significant Other Does the Patient Have Assistance After Yes Surgery Patient Discharge Plan Description Return Home Comment Pt advised 4-5 day length of stay per surgeon Feels Safe in Current Environment Yes Been Physically Hurt or Threatened By a No Person in Current Environment Do you have thoughts of harming yourself None or others? Are you currently considering suicide? No Do you have a plan to hurt yourself or No Plan others? Do You Have Any Spiritual Beliefs That No May Affect Your HC Choices? Do You Have Any Cultural Practices That No May Affect Your HC Choices? Who Can We Speak to About Patient's Care Family, friends Identifying Code for Release of Patient Declines to issue Information Health Care Proxy/Next of Kin Arabella Ash) Health Care Proxy Emergency Contact Name Arabella Ash) Emergency Contact Advance Directives? No Advance Directives on File No Power of Non Cdl Driver No PAC Instructions Diabetes instructions,Durable medical equipment,Medications to take/avoid,No ETOH/ petroleum product on skin DOS, NPO,Pre-op antibiotic,Pre- surgical wash,Sensory aids, Sturdy shoes/comfortable clothes,Do not bring valuables and remove jewelry
--- NOTE | 2022-08-31 13:37 | DIET.CONS2 ---
Dietary Inpatient Consultation Note Admission Date: 08/30/2022 06:25 Pt c DM2, BG 313 today, 180s last evening, and >300 prior to surgery. Pt given 7U lispro after BG 313 today. Pt's home Rx includes 1,000mg metformin bid, semaglutide 0.5mg weekly, and 28U basaglar HS. Recc med modification to support post-surgical healing with BG goal <180. Diet: 08/30/22 Dinner Clear Liquid Diet Diet Modifications: Nutrition Percent Meal Consumed 25% 08/30/22 17:49 Electronically Signed by: Hien Mccullough 08/31/22 13:37 Clinical Dietitian [address] [address]
--- NOTE | 2022-08-31 13:57 | PC.NURSE ---
Assumed care of pt at 1330, A&Ox4, c/o 04/06 pain to lower abdomen. No SOB or chest pain, CMS intact. Lungs clear, BT present, not passing flatus. 4 large bandaids and 1 midline dressing to abdomen, midline dressing with moderate amount of shadowing but dry. NS infusing at 75 to L wrist IV, pt medicated for pain with PRN dilaudid per OCT. Pt voided first void since removal of catheter this am, 275mL out.
[2022-08-31] MEDS: METOPROLOL ER 50 MG TABLET 100 MG PO (20:05)
[2022-08-31] MEDS: SERTRALINE 50 MG TABLET PO (20:05)
[2022-08-31] MEDS: ATORVASTATIN 20 MG TABLET 40 MG PO (20:05)
[2022-08-31] MEDS: IBUPROFEN 600 MG TABLET PO (20:06)
[2022-08-31] MEDS: OXYCODONE/ACETAMINOPHEN 5/325 TABLET 1 TAB PO (21:30)
[2022-09-01] VITALS (7 sets, daily range): BP systolic 125–153; BP diastolic 78–88; PULSE 66–76; RESP 16–22; TEMP 36.2–36.7; O2SAT 93–95
[2022-09-01] MEDS: HYDROMORPHONE 1 MG INJ IV ×5 (02:02→22:58)
[2022-09-01] MEDS: SODIUM CHLORIDE 0.9% 1,000 ML 75 ML IV ×2 (02:05→13:31)
[2022-09-01] MEDS: OXYCODONE/ACETAMINOPHEN 5/325 TABLET 1 TAB PO ×4 (03:28→19:02)
[2022-09-01] MEDS: INSULIN LISPRO 100 UNIT/ML 3ML VIAL SUBCUT ×4 (08:43→20:36)
--- NOTE | 2022-09-01 13:26 | PM.PN.1 ---
Subjective Subjective Date Patient Seen: 09/01/22 Time Patient Seen: 13:27 Interval history: Some nausea today. No flatus. Exam Vital Signs (past 8 hours): - 09/01/22 07:35 09/01/22 11:26 09/01/22 11:00 Temperature 97.1 F L 97.3 F L 97.1 F L Pulse Rate 73 66 66 Respiratory Rate 18 18 Blood Pressure 153/88 H 125/87 Pulse Oximetry 94 93 Oxygen Delivery Method Oxygen Flow Rate 0 0 09/01/22 08:30 Temperature Pulse Rate Respiratory Rate Blood Pressure Pulse Oximetry Oxygen Delivery Method Room Air Oxygen Flow Rate Oxygen Delivery Method Room Air Oxygen Flow Rate 0 Narrative Exam Narrative: Abdomen soft Objective Labs Result Diagrams: 08/31/22 05:52 08/31/22 05:52 PFS Medical History (Updated 08/31/22 @ 10:59 by Darien Agrawal MD) COVID-19 virus infection Diabetes HLD (hyperlipidemia) Kidney stones Surgical History (Updated 08/25/22 @ 09:15 by Izzy Jeff RN) History of cholecystectomy History of circumcision Hx of arthroscopy of right knee Hx of colonoscopy (07/07/22) Family History Father Diabetes mellitus Social History marital status: household members: significant other and other Smoking Status: Current some day smoker alcohol intake: current Assessment & Plan Assessment and plan (1) Postoperative examination: Status: Acute Plan Continue clear liquid diet until he is passing flatus then advance to regular. Time Spent With Patient Critical Care time: I spent a total of [] minutes of critical care time on this patient's care today; this time is exclusive of procedural time.
[2022-09-01] MEDS: ATORVASTATIN 20 MG TABLET 40 MG PO (20:33)
[2022-09-01] MEDS: IBUPROFEN 600 MG TABLET PO (20:33)
[2022-09-01] MEDS: METOPROLOL ER 50 MG TABLET 100 MG PO (20:34)
[2022-09-01] MEDS: SERTRALINE 50 MG TABLET PO (20:35)
[2022-09-02] VITALS (7 sets, daily range): BP systolic 149–170; BP diastolic 83–90; PULSE 63–87; RESP 16–20; TEMP 36.1–36.9; O2SAT 95–96
[2022-09-02] MEDS: OXYCODONE/ACETAMINOPHEN 5/325 TABLET 1 TAB PO ×4 (01:09→20:16)
[2022-09-02] MEDS: SODIUM CHLORIDE 0.9% 1,000 ML 75 ML IV ×2 (01:20→14:59)
[2022-09-02] MEDS: HYDROMORPHONE 1 MG INJ IV (02:49)
[2022-09-02] MEDS: INSULIN LISPRO 100 UNIT/ML 3ML VIAL SUBCUT ×3 (08:27→17:42)
--- NOTE | 2022-09-02 09:30 | PC.NURSE ---
Addendum entered by Harsh Olivera R.N. 09/02/22 15:53: spoke with Dr. Patrick about Pt meds. awaiting new orders. Addendum entered by Harsh Olivera R.N. 09/02/22 10:19: Discussed moving to a chair until lunch time and then a short walk in the garcia. Pt agreeable and assisted out of bed. Tomas activity well. using abd. binder, walker and SBA. Original Note: Pt is A&O, understands the need to get up today and move as much as possible. Surgical sites intact, Bowel sounds evident throughout.
[2022-09-02] MEDS: METOPROLOL ER 50 MG TABLET 100 MG PO (20:16)
[2022-09-02] MEDS: SERTRALINE 50 MG TABLET PO (20:16)
[2022-09-02] MEDS: ATORVASTATIN 20 MG TABLET 40 MG PO (20:16)
--- NOTE | 2022-09-02 20:19 | PM.PN.1 ---
Subjective Subjective Interval history: Mr. Garg says he is feeling okay today. His pain is controlled on oral pain medicines. He has not had any nausea. He has been tolerating clear liquids just fine. He has been up and out of bed and walking around. He feels hungry and would like to try regular food Exam Vital Signs (past 8 hours): - 09/02/22 16:22 09/02/22 20:16 Temperature 97.8 F Pulse Rate 63 Respiratory Rate 18 Blood Pressure 149/83 H 170/90 H Pulse Oximetry 96 Oxygen Flow Rate 0 Oxygen Delivery Method Room Air Oxygen Flow Rate 0 Narrative Exam Narrative: He is awake alert oriented and in no acute distress he is pleasant and appropriate Wounds are clean dry and intact with elvin in place Extremities are not edematous. Objective Labs Result Diagrams: 08/31/22 05:52 08/31/22 05:52 [facility] Medical History (Updated 08/31/22 @ 10:59 by Darien Agrawal MD) COVID-19 virus infection Diabetes HLD (hyperlipidemia) Kidney stones Surgical History (Updated 08/25/22 @ 09:15 by Izzy Jeff RN) History of cholecystectomy History of circumcision Hx of arthroscopy of right knee Hx of colonoscopy (07/07/22) Family History Father Diabetes mellitus Social History marital status: household members: significant other and other Smoking Status: Current some day smoker alcohol intake: current Assessment & Plan Assessment & Plan narrative: Postoperative day 3 status post lap assisted sigmoid colectomy doing well Will advance diet as tolerated, restart home meds. stop IV fluids DVT prophylaxis with Lovenox, and possibly home tomorrow Time Spent With Patient Critical Care time: I spent a total of [] minutes of critical care time on this patient's care today; this time is exclusive of procedural time.
[2022-09-02] MEDS: METFORMIN HCL 500 MG TABLET 1000 MG PO (20:39)
[2022-09-03] MEDS: OXYCODONE/ACETAMINOPHEN 5/325 TABLET 1 TAB PO ×2 (00:33→10:43)
[2022-09-03 00:35] VITALS: BP 147/86; PULSE 68; RESP 18; TEMP 36.5; O2SAT 94
[2022-09-03] MEDS: HYDROMORPHONE 1 MG INJ IV ×2 (07:38→11:26)
[2022-09-03] MEDS: INSULIN LISPRO 100 UNIT/ML 3ML VIAL SUBCUT (07:44)
[2022-09-03 08:00] VITALS: BP 141/89; PULSE 70; RESP 16; TEMP 36.7; O2SAT 94
[2022-09-03] MEDS: METFORMIN HCL 500 MG TABLET 1000 MG PO (09:15)
[2022-09-03] MEDS: ENOXAPARIN 40 MG/0.4 ML SYRINGE SUBCUT (09:15)
--- NOTE | 2022-09-03 12:25 | PC.NURSE ---
Pt discharged and wheeled out to care with [employer]. Pt accompied by significant other and young daughter. All questions answered at the time of discharge. Pt is A&Ox4, all questions answered, verbalized understanding of when to call surgeon's office and when to return to the ED if needed. All belongings sent home with pt including: clothes, sweatpants, cell phone, cell phone rn stars, magazines, shoes, socks, abd binder, pictures, and all other belongings.
--- NOTE | 2022-09-03 14:09 | CM.DPC ---
DCP Discharge Home Per Surgeon, pt tolerated advancing diet and ambulating halls and medically stable to d/c home today. Per RN, discharge instructions provided and pt's Sig Other arrived to provide transport home and no concerns at this time. Plan: Patient discharged home today via Sig other POV and outpt f/u. No further SW needs at this time. EMI Baker
--- NOTE | 2022-09-05 11:03 | P.DS_ITS ---
History of Present Illness History of Present Illness Chief complaint: Colectomy Narrative: Mr. Garg presented for a laparoscopic-assisted sigmoid colectomy by Dr. Agrawal the indication was chronic diverticulitis. Discharge Providers Provider Date of admission: 08/30/22 06:25 Discharge Date: 09/03/22 Primary care physician: Marques Mata MD Discharge provider: Vicki Patrick MD Summary Hospital Course Hospital Course: He did well postoperatively his diet was advanced as tolerated he had his pain controlled with oral pain medication and ambulating at the time of discharge. Amparo renteria had a little postoperative nausea which kept him an extra day in the hospital. But he was discharged home in good condition. Time Spent with Patient Time spent: Less than 30 minutes Exam Vital Signs (past 8 hours): Oxygen Delivery Method Room Air Oxygen Flow Rate 0 Narrative Exam Narrative: He is awake alert oriented and in no acute distress he is pleasant. His wounds are clean dry and intact his abdomen is soft and appropriately tender. No lower extremity edema or tenderness Objective Labs Result Diagrams: 08/31/22 05:52 08/31/22 05:52 [facility] Medical History (Updated 08/31/22 @ 10:59 by Darien Agrawal MD) COVID-19 virus infection Diabetes HLD (hyperlipidemia) Kidney stones Surgical History (Updated 08/25/22 @ 09:15 by Izzy Jeff RN) History of cholecystectomy History of circumcision Hx of arthroscopy of right knee Hx of colonoscopy (07/07/22) Family History Father Diabetes mellitus Social History marital status: household members: significant other and other Smoking Status: Current some day smoker alcohol intake: current Discharge Assessment & Plan Assessment and Plan Assessment: Discharge home today Plan of Treatment: He has been given the appropriate discharge instructions and has follow-up bhupinder benavidez. Discharge Plan Discharge Plan Patient Disposition: Home Discharge orders & Medications Prescriptions: New oxycodone-acetaminophen 5-325 mg Tablet 2 tab PO Q6H Qty: 20 0RF Rx Instructions: May take 1-2 tabs as needed. Alternate with advil aka ibuprofen. Switch out with tylenol every 6 hours as needed. (as instructed) ibuprofen 600 mg Tablet 600 mg PO Q6H Qty: 30 0RF Rx Instructions: take with a little bit of food. Alternate with percocet OR tylenol as instructed. docusate sodium [Colace] 100 mg capsule 100 mg PO BID Qty: 30 0RF Continued sertraline [Zoloft] 25 mg tablet 50 mg PO BEDTIME Ozempic 0.25 mg or 0.5 mg(2 mg/1.5 mL) pen injector 0.5 mg SUBCUT QWEEK Label Comments: Takes on Saturdays insulin glargine [Basaglar KwikPen U-100 Insulin] 100 unit/mL (3 mL) insulin pen 28 unit SUBCUT BEDTIME atorvastatin 40 mg Tablet 40 mg PO BEDTIME metformin 1,000 mg Tablet 1,000 mg PO BID metoprolol succinate 50 MG tablet extended release 24 hr 100 mg PO BEDTIME pantoprazole 20 mg Tablet,Delayed Release (Dr/Ec) 20 mg PO BEDTIME Discontinued metronidazole 500 mg tablet 500 mg PO TID Qty: 3 0RF Rx Instructions: Administer the day prior to surgery at 2 pm, 4pm, and 10 pm neomycin 500 mg tablet 1 g PO TID Qty: 6 0RF Rx Instructions: administer at 2 PM, 4 PM, and 10 PM the day prior to surgery naproxen sodium [Aleve] 220 mg Capsule 440 mg PO BEDTIME Follow up/Referrals: Darien Agrawal MD [Physician] - (Come to clinic for post op check and staple removal as scheduled. Call clinic with any questions/concerns. ) Marques Mata MD [Primary Care Provider] - Diet/Activity/Treatments Diet: Regular Visit Report/Discharge Packet Instructions: DI for Colectomy, DI for Laparoscopy, DI for Prescription Opioid Use, [facility]: Wound Care Stand Alone Forms: Patient Portal/API, Stroke Signs & Symptoms Discharge Data Primary Care Provider: Marques Mata
== END 2022-09-03 12:26 | disposition home or self-care (01) | DRG 349 ==
PROVIDERS: Admitting Provider Surgery; PCP Family Medicine; Referring Provider Surgery; Visit Provider Surgery
PROC: 0DTE0ZZ Resection of Large Intestine, Open Approach (ICD-10-PCS; principal; 2022-08-30 07:45)
DX: K57.32 Diverticulitis of large intestine without perforation or abscess without bleeding (principal); F17.290 Nicotine dependence, other tobacco product, uncomplicated; E78.5 Hyperlipidemia, unspecified; E11.9 Type 2 diabetes mellitus without complications; Z79.85 Long-term (current) use of injectable non-insulin antidiabetic drugs; Z79.84 Long term (current) use of oral hypoglycemic drugs; Z20.822 Contact with and (suspected) exposure to COVID-19; Z79.4 Long term (current) use of insulin
CPT/HCPCS: 36415; 44204; 44213; 80048; 82962; 85025; 87635; C9803; C9290; J0295; J1100; J1170; J1650; J1815; J2060; J2250; J2405; J2704; J3010